=== PATIENT | female | born 1990 | race Caucasian/White ===

== ENCOUNTER 2020-03-28 21:17 | Emergency (ER) | payer OTHER ==
[~2020-03-28 21:17] MED LIST: AMOXICILLIN500 MG PO; BACTRIM DS TAB1 EACH PO; BENTYL10 MG PO; CYCLOBENZAPRINE10 MG PO; DICLOFENAC SODI75 MG PO; FLOMAX0.4 MG PO; IMITREX50 MG PO; KETOROLAC TROME10 MG PO; MOTRIN600 MG PO; NORCO 5-325 TA1 EACH PO; PHENERGAN12.5 MG PR; PHENERGAN25 M1 PO; ROBAXIN750 MG PO
== END 2020-03-29 00:30 | disposition home or self-care (01) ==
LOC: FER 21:17
DX: S60.222A Contusion of left hand, initial encounter (principal); S60.221A Contusion of right hand, initial encounter; S00.432A Contusion of left ear, initial encounter; S20.211A Contusion of right front wall of thorax, initial encounter; M54.2 Cervicalgia; F17.200 Nicotine dependence, unspecified, uncomplicated; Z88.8 Allergy status to other drugs, medicaments and biological substances; W22.8XXA Striking against or struck by other objects, initial encounter; Y92.009 Unspecified place in unspecified non-institutional (private) residence as the place of occurrence of the external cause
CPT/HCPCS: 70450; 71045; 73130

== ENCOUNTER 2020-11-27 11:13 | Emergency (ER) | payer OTHER ==
[2020-11-27 12:20] LABS: BILIRUBIN NEGATIVE (NEGATIVE); BLOOD 1+ Ery/uL (NEGATIVE); CLARITY HAZY (CLEAR); COLOR YELLOW (YELLOW); GLUCOSE (U) NORMAL (NORMAL); LEUKOCYTES NEGATIVE Leu/uL (NEGATIVE); NITRITE NEGATIVE (NEGATIVE); PROTEIN NEGATIVE (NEGATIVE); SPECIFIC GRAVITY >=1.030 (1.001-1.030); UROBILINOGEN 0.2 mg/dL (0.2-1.0); pH 5.5 (5.0-9.0)
[2020-11-27 12:28] LABS: ECSTASY (MDMA) NEGATIVE (NEGATIVE); MARIJUANA (THC) NEGATIVE (NEGATIVE); METHADONE NEGATIVE (NEGATIVE); OPIATES NEGATIVE (NEGATIVE)
[2020-11-27 12:29] LABS: AMPHETAMINES NEGATIVE (NEGATIVE); BARBITURATES NEGATIVE (NEGATIVE); OXYCODONE NEGATIVE (NEGATIVE)
[2020-11-27 12:34] LABS: BACTERIA 1+
[2020-11-27 12:48] LABS: BASOPHIL 0.5 % (0-2); EOSINOPHIL 0.9 % (0-5); HCT 36.8 % (37.0-47.0); LYMPHOCYTE 14.8 % (15-48); MCH 30.2 pg (25.0-31.0); MCHC 32.6 g/dL (32.0-36.0); MCV 92.7 fL (78.0-100.0); MONOCYTE 5.2 % (0-12); MPV 10.6 fL (6.0-9.5); NEUTROPHIL 78.1 % (41-80); NRBC 0; PLT 217 K/uL (150-400); RBC 3.97 M/uL (4.20-5.40); RDW 13.4 % (11.5-14.0); WBC 17.2 K/uL (4.0-10.5)
[2020-11-27 13:08] LABS: ALBUMIN 3.2 g/dL (3.4-5.0); BILIRUBIN - TOTAL 0.3 mg/dL (0.2-1.0); BUN/CREAT RATIO (CALC) 16.7 RATIO; CREATININE 0.72 mg/dL (0.51-0.95); GLOBULIN (CALCULATION) 3.5 g/dL; POTASSIUM 4.2 mmol/L (3.5-5.1); TOTAL PROTEIN 6.7 g/dL (6.4-8.2)
[2020-11-30 01:10] LABS: CHLAMYDIA TRACHOMATIS, NAA Negative (Negative); NEISSERIA GONORRHOEAE, NAA Positive (Negative)
== END 2020-11-27 16:51 | disposition home or self-care (01) ==
LOC: FER 11:13
PROVIDERS: Emergency Medicine
DX: S30.1XXA Contusion of abdominal wall, initial encounter (principal); F17.200 Nicotine dependence, unspecified, uncomplicated; X58.XXXA Exposure to other specified factors, initial encounter; Y92.009 Unspecified place in unspecified non-institutional (private) residence as the place of occurrence of the external cause
CPT/HCPCS: 36415; 74022; 80053; 80305; 81001; 85025; 87210; 87491; 87591; Q9967